=== PATIENT | male | born 1985 | race American Indian/Alaskan Native ===

== ENCOUNTER 2020-05-21 13:57 | Emergency (ER) | payer SELFPAY ==
[2020-05-21 14:12] VITALS: BP 113/67
--- NOTE | 2020-05-21 15:37 | Emergency Department Report ---
Chief Complaint: Urogenital-Male Stated Complaint: STD Time Seen by Provider: 05/21/20 15:21 - HPI History of Present Illness: Patient is a 34-year-old male who presents emergency room with complaints of penile discharge and dysuria that began 6 days ago. He states that he was recently sexually active without protection. He denies any fever, vomiting, abdominal pain, pain or swelling in the testicles, hematuria, urinary retention. He denies any past medical history. No allergies to medications. Vitals are normal On exam: Non toxic appearing, no acute distress atraumatic, normocephalic normal appearance of the eyes,EOMI, no periorbital edema or ecchymosis moist mucus membranes no respiratory distress A&O x4, no focal neuro deficit Patient is presenting for STD-like symptoms He denies any fever, vomiting, abdominal pain, pain or swelling in the test icles, hematuria, urinary retention. He will be referred to a clinic or the health department for a full STD panel Advised patient to please follow-up in the clinic or health department for full STD panel. please have any partner tested and treated as well. Avoid sexual intercourse. Return to emergency room for any new or worsening symptoms. Medical screening examination performed there is no threat to life or limb at this time - Exam Vital Signs: Vital Signs 05/21/20 14:10 Temperature 98.7 F Pulse Rate 81 Respiratory 18 Rate Blood Pressure 113/67 [Right] O2 Sat by Pulse 100 Oximetry MSE screening note: Focused history and physical exam performed. ED Disposition for MSE Clinical Impression: Penile discharge, Dysuria, Concern about STD in male without diagnosis Disposition: Z-07 MED SCREENING EXAM-LEFT Is pt being admited?: No Does the pt Need Aspirin: No Condition: Stable Instructions: Sexually Transmitted Diseases (ED), Safe Sex (ED) Additional Instructions: please follow-up in the clinic or health department for full STD panel. please have any partner tested and treated as well. Avoid sexual intercourse. Return to emergency room for any new or worsening symptoms. [facility]heed Address: [address] [place] [id number] [facility] - [facility]-3 Days [facility] [Provider Group] - 2-3 Days Time of Disposition: 15:36 Print Language: HEBREW
== END 2020-05-21 16:03 | disposition left against medical advice (07) ==
LOC: ED 13:57
DX: Z20.2 Contact with and (suspected) exposure to infections with a predominantly sexual mode of transmission (principal); Z53.21 Procedure and treatment not carried out due to patient leaving prior to being seen by health care provider